=== PATIENT | male | born 1990 | race Two or more races ===

== ENCOUNTER → 2024-08-03 | Outpatient (CLI) | payer MEDICARE, OTHER, SELFPAY ==
[2024-08-03 08:04] LABS: Collection Type, Urine Clean Catch; Squamous Epithelial Cell,Urine 0 /hpf (0-5)
[2024-08-03 08:23] LABS: Basophils % (Auto) 0 % (0-2.5); Eosinophils % (Auto) 0 % (0-10); Hematocrit 49.1 % (41.0-53.0); Hemoglobin 16.9 g/dL (13.5-16.0); Immature Granulocytes % (Auto) 0 % (0-0); Immature Granulocytes Auto 0.01 Thou/mm3 (0.00-0.00); Lymphocytes # (Auto) 1.9 Thou/mm3 (1.0-4.8); Lymphocytes % (Auto) 38 % (10-50); Mean Corpuscular HGB Conc 34.4 g/dl (31.0-37.0); Mean Corpuscular Hemoglobin 28.5 pg (25.0-35.0); Mean Corpuscular Volume 83 fL (80-100); Monocytes # (Auto) 0.3 Thou/mm3 (0.0-0.8); Monocytes % (Auto) 6 % (0-12); Neutrophils # (Auto) 2.7 Thou/mm3 (1.8-7.7); Neutrophils % (Auto) 55 % (37-80); Nucleated Red Blood Cell % 0 /100 WBC (0); Platelet Count 237 Thou/mm3 (140-440); RDW Standard Deviation 38.3 fL (35.1-43.9); Red Blood Count 5.92 Miln/mm3 (4.50-5.90); White Blood Count 4.9 Thou/mm3 (3.8-10.6)
[2024-08-03 08:30] LABS: Bilirubin,Urine Negative (Negative); Blood,Urine Negative (Negative); Clarity,Urine Clear (Clear/Hazy); Color,Urine Lt-Yellow (Lt Yel-Yel); Glucose, Urine 3+ (Negative); Ketones,Urine Negative (Negative); Leukocyte Esterase,Urine Negative (Negative); Nitrite,Urine Negative (Negative); Protein,Urine Trace (Neg - Trace); RBC,Urine 4 /hpf (0-3); Specific Gravity,Urine 1.028 (1.001-1.035); Urobilinogen,Urine Negative mg/dL (0.0-1.0); WBC,Urine < 1 /hpf (0-5)
[2024-08-03 08:36] LABS: Glucose Estimated Average 223 mg/dL (80-131); Hemoglobin A1C 9.4 % Hgb (4.8-6.0)
[2024-08-03 08:50] LABS: Alanine Aminotransferase 40 U/L (10-49); Albumin, Serum 5.1 gm/dL (3.5-5.0); Albumin/Globulin Ratio 1.8 (1.2-2.2); Alkaline Phosphatase 91 U/L (46-116); Anion Gap 4 (7-16); Aspartate Amino Transferase 20 U/L (0-34); BUN/Creatinine Ratio 18 Ratio (12-20); Bilirubin,Total 0.9 mg/dL (0.3-1.2); Blood Urea Nitrogen 14 mg/dL (9-23); Carbon Dioxide 30.4 mMol/L (20.0-31.0); Cardiac Risk Estimate 3.1 RATIO (4.0-6.7); Chloride 100 mMol/L (98-107); Cholesterol 169 mg/dL (132-200); Creatinine (Component) 0.8 mg/dL (0.6-1.3); Globulin 2.8 gm/dL (2.3-3.5); Glucose 188 mg/dL (74-106); HDL Cholesterol 54 mg/dL (40-60); LDL Cholesterol,Calculated 93 mg/dL (0-130); Osmolality,Calculated 273 (275-295); Potassium 4.6 mMol/L (3.4-5.1); Sodium 134 mMol/L (136-145); Thyroid Stimulating Hormone 1.19 uIU/mL (0.55-4.78); Total Protein 7.9 gm/dL (5.7-8.2); Triglycerides 110 mg/dL (30-150); eGFR > 60 See Note
== END | disposition home or self-care (01) ==
PROVIDERS: PCP Specialist; Referring Provider Specialist; Visit Provider Specialist
DX: R14.0 Abdominal distension (gaseous) (principal); R10.32 Left lower quadrant pain; R10.31 Right lower quadrant pain; R53.83 Other fatigue
CPT/HCPCS: 36415; 80053; 80061; 81001; 83036; 84443; 85025

== ENCOUNTER 2024-09-07 21:16 | Emergency (ER) | payer MEDICARE, OTHER, SELFPAY ==
[2024-09-07 21:18] VITALS: BMI 25.8
[2024-09-07 21:43] VITALS: BP 169/98; PULSE 83; RESP 20; TEMP 36.5; O2SAT 97
--- NOTE | 2024-09-07 21:45 | XR_ITS ---
Examination: Abdomen sonogram, Limited Date and time of exam: September 07, 2024 1058 hrs. Indications: Upper abdominal pain and nausea today Technique: Real-time jin scale transabdominal sonographic images of the upper abdomen obtained. Findings: Normal gallbladder Normal common bile duct 0.4 cm Pancreatic head 2.6 cm Liver 13.9 cm no focal liver lesions Normal hepatopedal portal venous flow Patent IVC Impression: Negative study
--- NOTE | 2024-09-07 21:45 | XR_ITS ---
Examination: CT abdomen with intravenous contrast CT pelvis with intravenous contrast 2-D coronal reconstructions 2-D sagittal reconstructions Date and time of exam:September 08, 2024 at 0007 hrs. Indications: Abdominal pain and nausea after eating beginning 4 days ago. CTDI: vol (mGy) 6.84 DLP: (mGycm) 401 Technique: Multiple axial sections of the abdomen and pelvis have been obtained. 64 slice high-resolution scanner used. 3 mm axial sections have been obtained, post intravenous injection 60 cc [id number] 2-D sagittal, coronal reconstructions obtained. Low dose protocols were performed. One or more of the following dose reduction techniques were used; automated exposure control, adjustment of the mA and/or KV according to patient size, use of iterative reconstruction technique. Findings: 12 mm nodule left lower lobe No focal liver or splenic lesions No gallstones No pancreatic or adrenal mass No renal or ureteral calculi Aorta normal size No bowel obstruction or pericecal inflammatory change Urinary bladder is contracted with wall thickening No prostatomegaly Impression: Suspicious for cystitis pattern 12 mm nodule left lower lobe, recommend PA lateral chest follow-up
--- NOTE | 2024-09-07 21:47 | PD.EDNV ---
Nausea/Vomit./Diarrhea-RME/HPI General Chief complaint: Nausea/Vomiting/Diarrhea Stated complaint: NAUSEA AFTER EATING X4 DAYS Time Seen by Provider: 09/07/24 21:30 Arrival date/time: 09/07/24 21:16 RME / HPI RME / HPI Narrative: 34-year-old male patient came in for evaluation regarding nausea. Onset of symptoms for the last 4 days as worsening nausea, not feeling well, and upper abdominal pain. 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 Patient denies any chest pain denies any fever denies any jaundice however patient felt he is getting weaker as supposed to be. Denies any other complaints. No medications taken prior travel. Related Data Allergies Allergy/AdvReac Type Severity Reaction Status Date / Time No Known Allergies Allergy Verified 09/07/24 21:17 Review of Systems Review of Systems Narrative Review of Systems: Review of system reviewed and within normal limits except mentioned in HPI ED Exam Narrative Physical exam: VITAL SIGNS: Reviewed. GENERAL APPEARANCE: Alert and interactive, follows commands, no acute distress, HEAD AND FACE: Non-traumatic. ENT: PERRL, pink conjunctivitis, eyelid no trauma, Mucous membrane moist. NECK: Supple, nontender, no nuchal rigidity. CHEST: No tenderness, no crepitus, no paradoxical movement, no retractions. LUNGS: Clear, well ventilated, symmetric, no rales, no wheezing, no ronchi, no stridor, good breath sounds bilaterally. HEART: Regular rate, regular rhythm, no murmur, no gallops. ABDOMEN: Soft, positive bowel sounds, nondistended, no guarding, nontender, no rebound, no masses, RECTAL: Deferred. GENITAL: Deferred. NEUROLOGICAL: Gross motor function intact sensory function intact, Appropriate for age. MUSCULOSKELETAL: low back nontender, full range of motion. EXTREMITIES: Nontender, full range of motion. SKIN: Color pink, dry, no rash, no lacerations, no abrasions, no contusions. LYMPHATICS: Deferred. Course Orders Category Date Time Status CT Screening NOW Care 09/07/24 21:[address] abdomen pelvis w con Stat Exams 09/07/24 21:45 Ordered US gall bladder Stat Exams 09/07/24 21:45 Ordered CBC Stat Lab 09/07/24 21:45 Ordered Comprehensive Metabolic Panel Stat Lab 09/07/24 21:45 Ordered Drug Screen,Urine Stat Lab 09/07/24 21:47 Ordered Hepatitis Acute Panel Stat Lab 09/07/24 21:46 Ordered Lipase Stat Lab 09/07/24 21:45 Ordered Partial Thromboplastin Time Stat Lab 09/07/24 21:45 Ordered Prothrombin Time with INR Stat Lab 09/07/24 21:45 Ordered UA, C/S IF [Urinalysis, C/S if Indicated] Stat Lab 09/07/24 21:47 Ordered Vital Signs Vital signs: Vital Signs Temperature 97.7 F 09/07/24 21:43 Pulse Rate 83 09/07/24 21:43 Respiratory Rate 20 09/07/24 21:43 Blood Pressure 169/98 H 09/07/24 21:43 Pulse Oximetry (%) 97 09/07/24 21:43 Oxygen Delivery Method Room Air 09/07/24 21:43 Nausea/Vomiting/Diarrhea MDM Narrative MDM Narrative:: 34-year-old male patient came in for evaluation regarding nausea. Onset of symptoms for the last 4 days as worsening nausea, not feeling well, and upper abdominal pain. 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 Patient denies any chest pain denies any fever denies any jaundice however patient felt he is getting weaker as supposed to be. Denies any other complaints. No medications taken prior travel. Discharge Plan Patient/Caregiver Discharge Instructions Print Language: Senegalese
[2024-09-07 22:32] LABS: Basophils % (Auto) 0 % (0-2.5); Eosinophils % (Auto) 1 % (0-10); Hematocrit 47.2 % (41.0-53.0); Hemoglobin 16.6 g/dL (13.5-16.0); Immature Granulocytes % (Auto) 0 % (0-0); Immature Granulocytes Auto 0.01 Thou/mm3 (0.00-0.00); Lymphocytes # (Auto) 2.7 Thou/mm3 (1.0-4.8); Lymphocytes % (Auto) 43 % (10-50); Mean Corpuscular HGB Conc 35.2 g/dl (31.0-37.0); Mean Corpuscular Hemoglobin 28.8 pg (25.0-35.0); Mean Corpuscular Volume 82 fL (80-100); Monocytes # (Auto) 0.4 Thou/mm3 (0.0-0.8); Monocytes % (Auto) 6 % (0-12); Neutrophils # (Auto) 3.1 Thou/mm3 (1.8-7.7); Neutrophils % (Auto) 49 % (37-80); Nucleated Red Blood Cell % 0 /100 WBC (0); Platelet Count 222 Thou/mm3 (140-440); RDW Standard Deviation 37.6 fL (35.1-43.9); Red Blood Count 5.76 Miln/mm3 (4.50-5.90); White Blood Count 6.2 Thou/mm3 (3.8-10.6)
--- NOTE | 2024-09-07 22:42 | PD.EDRME ---
Rapid Medical Screening Exam [facility] Arrival date/time: 09/07/24 21:16 34-year-old male patient came in for evaluation regarding nausea. Onset of symptoms for the last 4 days as worsening nausea, not feeling well, and upper abdominal pain. 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 Patient denies any chest pain denies any fever denies any jaundice however patient felt he is getting weaker as supposed to be. Denies any other complaints. No medications taken prior travel. Chief Complaint: Nausea/Vomiting/Diarrhea Time Seen by Provider: 09/07/24 21:30 Vital signs: Vital Signs Temperature 97.7 F 09/07/24 21:43 Pulse Rate 83 09/07/24 21:43 Respiratory Rate 20 09/07/24 21:43 Blood Pressure 169/98 H 09/07/24 21:43 Pulse Oximetry (%) 97 09/07/24 21:43 Oxygen Delivery Method Room Air 09/07/24 21:43 [facility] Narrative: 34-year-old male patient came in for evaluation regarding nausea. Onset of symptoms for the last 4 days as worsening nausea, not feeling well, and upper abdominal pain. 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 Patient denies any chest pain denies any fever denies any jaundice however patient felt he is getting weaker as supposed to be. Denies any other complaints. No medications taken prior travel.
[2024-09-07 22:45] LABS: Partial Thromboplastin Time 29.4 Seconds (22.0-36.0); Prothrombin Time 11.1 Seconds (9.0-12.2)
--- NOTE | 2024-09-07 22:51 | PD.EDNV ---
Nausea/Vomit./Diarrhea-RME/HPI General Chief complaint: Nausea/Vomiting/Diarrhea Stated complaint: NAUSEA AFTER EATING X4 DAYS Time Seen by Provider: 09/07/24 21:30 Arrival date/time: 09/07/24 21:16 34M with history of DM and appendectomy presents to ED with several days of intermittent epigastric/LUQ pain and N/V. Patient denies diarrhea, dysuria, and SOB, as well as cough. Patient has no current pain, but was sent by Dr. Hylton to get evaluated. Limitations: no limitations RME / HPI RME / HPI Narrative: 34-year-old male patient came in for evaluation regarding nausea. Onset of symptoms for the last 4 days as worsening nausea, not feeling well, and upper abdominal pain. 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 Patient denies any chest pain denies any fever denies any jaundice however patient felt he is getting weaker as supposed to be. Denies any other complaints. No medications taken prior travel. Related Data Allergies Allergy/AdvReac Type Severity Reaction Status Date / Time No Known Allergies Allergy Verified 09/07/24 21:17 Review of Systems Review of Systems Systems Reviewed: All systems reviewed, normal except as documented Constitutional Constitutional: Reports system reviewed and no additional complaints, except as documented, Denies fever(s) and Denies headache(s) ENT Ears, Nose, Mouth, and Throat: Denies disequilibrium and Denies headache(s) Cardiovascular Cardiovascular: Reports system reviewed and no additional complaints, except as documented, Denies chest pain and Denies dyspnea Respiratory Respiratory: Reports system reviewed and no additional complaints, except as documented, Denies cough and Denies dyspnea Gastrointestinal Gastrointestinal: Reports system reviewed and no additional complaints, except as documented, Reports as per HPI, Reports abdominal pain, Reports nausea and Reports vomiting Neurologic Neurologic: Reports system reviewed and no additional complaints, except as documented, Denies confusion, Denies disequilibrium and Denies headache(s) Psychiatric Psychiatric: Denies confusion Past Medical History Past Medical History CARDIAC: Negative Cardiac Disorders RESPIRATORY: Negative Asthma GENITOURINARY: Negative Renal Disease HEMATOLOGIC: Negative Sickle Cell Disease Social History SMOKING STATUS: Never smoker ED Exam General Limitations: Present no limitations General appearance: Present alert and in no apparent distress Head Head exam: Present atraumatic Eye Eye exam: Present normal appearance, PERRL and EOMI ENT ENT exam: Present normal exam, normal oropharynx and mucous membranes moist Neck Neck exam: Present normal inspection, full ROM and trachea midline Chest Chest inspection: Present normal inspection and symmetric chest wall rise Respiratory Respiratory exam: Present normal lung sounds bilaterally Cardiovascular Cardiovascular exam: Present regular rate, normal rhythm and normal heart sounds Abdominal Exam Abdominal exam: Present soft and normal bowel sounds Extremities Exam Extremities exam: Present normal inspection and full ROM Back Exam Back exam: Present normal inspection and full ROM Neurological Exam Neurological exam: Present alert, oriented X3 and CN II-XII intact Psychiatric Psychiatric exam: Present normal affect and normal mood Skin Skin exam: Present warm, dry, intact and normal color Course Quality Measures none Orders Category Date Time Status CT Screening NOW Care 09/07/24 21:46 Active Insert IV NOW Care 09/07/24 22:[address] abdomen pelvis w con Stat Exams 09/07/24 21:45 Taken US gall bladder Stat Exams 09/07/24 21:45 Completed CBC Stat Lab 09/07/24 21:56 Completed Comprehensive Metabolic Panel Stat Lab 09/07/24 21:56 Completed Drug Screen,Urine Stat Lab 09/07/24 22:24 Completed Hepatitis Acute Panel Stat Lab 09/07/24 21:56 Completed Lipase Stat Lab 09/07/24 21:56 Completed Partial Thromboplastin Time Stat Lab 09/07/24 21:56 Completed Prothrombin Time with INR Stat Lab 09/07/24 21:56 Completed UA, C/S IF [Urinalysis, C/S if Indicated] Stat Lab 09/07/24 22:24 Completed Vital Signs Vital signs: Vital Signs Temperature 97.7 F 09/07/24 21:43 Pulse Rate 83 09/07/24 21:43 Respiratory Rate 20 09/07/24 21:43 Blood Pressure 169/98 H 09/07/24 21:43 Pulse Oximetry (%) 97 09/07/24 21:43 Oxygen Delivery Method Room Air 09/07/24 21:43 O2 at 97% on RA and WNLs Nausea/Vomiting/Diarrhea MDM Narrative MDM Narrative:: 34M with history of DM and appendectomy presents to ED with several days of intermittent epigastric/LUQ pain and N/V. Patient denies diarrhea, dysuria, and SOB, as well as cough. Patient has no current pain, but was sent by Dr. Hylton to get evaluated. Physical exam reveals no ab tenderness. Clear lungs. Patient is afebrile, calm, and alert. CT no acute ab abnormalities, but incident L lower lobe 1.5 cm mass. No leukocytosis. US gallbladder normal. CMP unremarkable. Lipase normal. UA and tox screen clean. Likely gastritis. Spoke to Dr. Hylton about results and he states patient can follow-up with him next week outpatient. Patient data External records reviewed:: None Clinical information provided by:: patient Social determinants that could affect healthcare access:: none Patient has the following chronic illnesses:: DM How is presenting disease/condition affected by chronic disease/condition?: exacerbated by Evaluation data The following diagnostics were reviewed and interpreted by me:: lab results and radiology exam(s) Lab and/or radiology exams considered but not ordered:: ordered Interpretation Summary: above Medications / Prescriptions Medications / Prescriptions considered but not ordered:: not ordered Medication administrations:: n/a Consultations Consultation(s) initiated? (list below): Yes Diagnosis Nausea Differential Diagnosis: traveler's diarrhea, food poisoning, gastroenteritis, clostridium difficile infection, drug-induced nausea and vomiting, dehydration and other (gastritis and incidental pulmonary nodule) Most likely diagnosis given after review of the tests above:: gastritis and incidental pulmonary nodule Admission Indicated Admission indicated?: not indicated Admission Request Was there a request for admission?: No Disposition Plan Disposition Plan: Discharge Discharge Attestation Discharge Attestation: The patient and all family members were given an opportunity to ask questions and understood the discharge instructions. Discharge instructions specifically effects, indications for sooner follow up or return to the emergency department, and the expected course of current diagnosis. Patient condition: Stable Discharge Plan Plan Patient Disposition: HOME (Self Care) Disposition Comment: Stable Prescriptions/Referrals Referrals: Calderon Sarmiento MD [Primary Care Provider] - In 1 week Problem List Clinical Impression: Gastritis, Incidental pulmonary nodule Patient/Caregiver Discharge Instructions Education Materials: ED Gastritis (Adult) Additional Instructions: Please follow-up with PCP within 24-48 hours and return immediately if symptoms worsen. Follow-up with Dr. Hylton next week. Print Language: Singaporean Stand Alone Forms: Patient Portal Info Letter PA/DON Supervising Physician BRENDON/DON Supervising Physician: Dr. Price
[2024-09-07 22:52] LABS: Collection Type, Urine Clean Catch; Squamous Epithelial Cell,Urine 0 /hpf (0-5); WBC,Urine 0 /hpf (0-5)
[2024-09-07 22:53] LABS: Alanine Aminotransferase 36 U/L (10-49); Albumin, Serum 4.9 gm/dL (3.5-5.0); Albumin/Globulin Ratio 1.5 (1.2-2.2); Alkaline Phosphatase 87 U/L (46-116); Anion Gap 5 (7-16); Aspartate Amino Transferase 28 U/L (0-34); BUN/Creatinine Ratio 15 Ratio (12-20); Bilirubin,Total 0.5 mg/dL (0.3-1.2); Blood Urea Nitrogen 12 mg/dL (9-23); Calcium 10.2 mg/dL (8.3-10.6); Calcium (Corrected) 10.2 mg/dL (8.5-10.1); Carbon Dioxide 29.9 mMol/L (20.0-31.0); Chloride 104 mMol/L (98-107); Creatinine (Component) 0.8 mg/dL (0.6-1.3); Estimated Creatinine Clearance 130.1 mL/min (>60); Globulin 3.2 gm/dL (2.3-3.5); Glucose 170 mg/dL (74-106); Lipase 52 U/L (12-53); Osmolality,Calculated 281 (275-295); Potassium 4.2 mMol/L (3.4-5.1); Sodium 139 mMol/L (136-145); Total Protein 8.1 gm/dL (5.7-8.2); eGFR > 60 See Note
[2024-09-07 23:20] LABS: Bilirubin,Urine Negative (Negative); Blood,Urine Negative (Negative); Clarity,Urine Clear (Clear/Hazy); Color,Urine Colorless (Lt Yel-Yel); Culture Indicated,Urine Not Indicated; Glucose, Urine 3+ (Negative); Ketones,Urine Negative (Negative); Leukocyte Esterase,Urine Negative (Negative); Nitrite,Urine Negative (Negative); Protein,Urine Negative (Neg - Trace); RBC,Urine 1 /hpf (0-3); Specific Gravity,Urine 1.012 (1.001-1.035); Urobilinogen,Urine Negative mg/dL (0.0-1.0)
[2024-09-07 23:36] LABS: Amphetamine/Methamp Scrn,U Negative (Negative); Barbiturate Screen,Urine Negative (Negative); Benzodiazepines Screen,Urine Negative (Negative); Benzoylecgonine Screen, Ur Negative (Negative); Fentanyl Screen,Urine Negative (Negative); Opiate Screen,Urine Negative (Negative); THC Screen,Urine Negative (Negative)
[2024-09-07 23:49] LABS: Hepatitis A Antibody IgM Non Reactive (Non React); Hepatitis B Core Antibody IgM Non Reactive (Non React); Hepatitis B Surface Antigen Non Reactive (Non React); Hepatitis C Antibody Non Reactive (Non React)
--- NOTE | 2024-09-08 01:11 | PRELIM_ITS ---
CT scan of the abdomen and pelvis with intravenous contrast (axial sections with sagittal and coronal reformats). September 08, 2024 at 0007 hours Clinical History: Abdominal pain, nausea. Technique: Helical axial sections of the abdomen and pelvis were obtained with intravenous contrast. Iterative reconstruction technique was employed to reduce patient radiation exposure. Radiation Dose: Total exam DLP 401 mGy/cm. Contrast Dose: Not available. Comparison: None. Findings: The liver, gallbladder, spleen, pancreas, adrenals and kidneys are unremarkable. There is circumferential urinary bladder wall thickening. There are pelvic phleboliths. There is underdistention of the stomach which limits evaluation. There are few colonic diverticula without evidence of diverticulitis . There is no bowel obstruction. Appendix is not inflamed. There is no free intraperitoneal air or fluid. There is no abdominal or pelvic lymphadenopathy. There is a 1.5 cm pulmonary nodule in the left lower lobe adjacent to the major fissure as well as smaller adjacent reticular nodular appearing densities in the left lower lobe. There is no acute osseous abnormality. Bilateral L5 pars defects are noted with early grade 1 anterolisthesis of L5 on S1. Impression: Possible cystitis, recommend clinical correlation. Colonic diverticula without evidence of diverticulitis. A 1.5 cm nonspecific solid-appearing left lower lobe pulmonary nodule with smaller adjacent reticular nodular densities in the left lower lobe which may be infectious/inflammatory in etiology. Recommend follow-up per Fleischner Society guidelines for the 1.5 cm left lower lobe pulmonary nodule. Report Electronically Signed By: Ramon Carballo 09/08/2024 1:09:55 AM [EST]
== END 2024-09-08 04:56 | disposition home or self-care (01) ==
PROVIDERS: Nurse Practitioner Family; Emergency Provider Emergency Medicine; PCP Family Medicine
DX: K29.70 Gastritis, unspecified, without bleeding (principal); R91.1 Solitary pulmonary nodule
CPT/HCPCS: 36415; 74177; 76705; 80053; 80074; 80307; 81001; 83690; 85025; 85610; 85730; 99285; A4649; Q9967